=== PATIENT | male | born 1995 | race African-American/Black ===

== ENCOUNTER 2019-10-07 08:38 | Emergency (ER) | payer MEDICAID, OTHER ==
[~2019-10-07] VITALS: Ht 188 cm; Wt 79.5 kg
[2019-10-07] MEDS ORDERED: IBUPROFEN 600MG TABLET PO ONE (11:00)
[2019-10-07 11:41] VITALS: BP 109/63
== END 2019-10-07 11:43 | disposition home or self-care (01) ==
LOC: ER 09:24
DX: M79.10 Myalgia, unspecified site (principal); V49.9XXA Car occupant (driver) (passenger) injured in unspecified traffic accident, initial encounter; Y93.9 Activity, unspecified; Y92.410 Unspecified street and highway as the place of occurrence of the external cause
CPT/HCPCS: 99282

== ENCOUNTER 2020-01-26 11:30 | Emergency (ER) | payer SELFPAY ==
[~2020-01-26] VITALS: Ht 188 cm; Wt 84.0 kg
[2020-01-26 14:09] VITALS: BP 123/67
== END 2020-01-26 14:17 | disposition home or self-care (01) ==
LOC: ER 11:30
DX: S39.012A Strain of muscle, fascia and tendon of lower back, initial encounter (principal); V49.59XA Passenger injured in collision with other motor vehicles in traffic accident, initial encounter; Y93.89 Activity, other specified; Y92.89 Other specified places as the place of occurrence of the external cause; Y99.8 Other external cause status
CPT/HCPCS: 99283